=== PATIENT | male | born 1975 | race Caucasian/White ===

== ENCOUNTER 2016-11-26 02:22 | Emergency (ER) | payer OTHER ==
--- NOTE | 2016-11-26 03:32 | ERNOTE ---
Medical Problem HPI - General Chief Complaint: General Assessment Time Seen by Provider: 11/26/16 03:27 Source: patient Exam Limitations: no limitations - Immun/Allergies/Home Medications Immunizations: IMMUNIZATION HX Immunizations Up to Date Yes History of Influenza Vaccine No Hx Pneumococcal Vaccination No Allergies/Adverse Reactions: Allergies No Known Allergies Allergy (Verified 04/22/15 15:22) Home Medications: HOME MEDICATIONS NK [No Home Medication] 11/26/16 [Last Taken Unknown] - History of Present History Narrative: Pt has had some diarrhea for about a week. He believes it is related to where he is staying and that it might be black mold. Timing: intermittent Severity: mild Review of Systems - Review of Systems Constitutional: Present: malaise. Absent: recent illness, fever, chills EYE: Present: no symptoms reported ENT: Present: no symptoms reported Respiratory: Present: cough Cardiology: Absent: chest pain Gastrointestinal/Abdominal: Present: nausea, diarrhea. Absent: vomiting Genitourinary: Present: no symptoms reported Musculoskeletal: Present: no symptoms reported Skin: Present: no symptoms reported Neurological: Present: no symptoms reported Endocrine: Present: no symptoms reported Hematologic/Lymphatic: Present: no symptoms reported Psych: Present: no symptoms reported - Patient's Past Medical History Patient History - Medical: ADHD Patient History - Cardiac/Respiratory: No pertinent hx Patient History - Cancer: No Hx of Cancer Patient History - Surgical Procedures: T & A, Other, Orthopedic Patient History - Other: None - Social History Living Situations: alone Abuse History: No History of abuse Psych History: No pertinent hx Smoking Status: Current every day smoker Have you smoked in the past 12 months: Yes Do you dip or chew tobacco: No Alcohol Use: none Drug Use: none - Immunizations Immunizations Up to Date: Yes Hx Pneumococcal Vaccination: No History of Influenza Vaccine: No Physical Exam - Physical Exam General Appearance: Present: wd/wn, alert, no apparent distress Head Exam: Present: normal inspection, no evidence of injury Eye Exam: Normal inspection: bilateral Ears, Nose, Throat: Present: normal ENT inspection, normal pharynx Neck: Present: normal inspection, nontender Respiratory: Present: no respiratory distress, normal breath sounds, lungs clear Gastrointestinal/Abdominal: Present: tenderness - diffusely Extremity Exam: Present: normal inspection, no edema Neurological Exam: Present: alert, oriented, normal mood/affect Skin Exam: Present: normal color, warm/dry Lymphatic Exam: Present: no adenopathy ED Progress - Results and Orders Patient's Lab Results:: I have reviewed the patient's lab results. Results and Orders: Laboratory Tests 11/26/16 11/26/16 03:40 03:40 WBC 8.2 Hgb 16.4 Hct 48.7 Plt Count 292 Sodium 142 Potassium 3.7 Chloride 106 Carbon Dioxide 24.1 BUN 16 Creatinine 1.33 Random Glucose 99 Calcium 9.3 Total Bilirubin 0.3 AST 12 ALT 18 L Alkaline Phosphatase 127 Total Protein 8.3 H Albumin 4.2 Amylase 73 Lipase 193 - Vital Signs Patient's Vital Signs:: I have reviewed the patient's vital signs. Vital Signs: Vital Signs 11/26/16 02:27 Temperature 36.7 C Pulse Rate 114 H Respiratory 16 Rate Blood Pressure 158/92 O2 Sat by Pulse 98 Oximetry - X-Ray X-Ray #1 X-Ray: abdomen Interpretation: Interp. by me X-ray Comments: Non specific gas patern - Progress/Reassessment Chief Complaint: General Assessment Departure Clinical Impression: Gastroenteritis - Departure Disposition: Home self-care Condition: Good Instructions: Diarrhea, Adult, [id number] Additional Instructions: clear liquids if you are naseated. You may take imodium if the diarrhea is getting severe. If you think were you live is bothering you have your landlord clean it up or move out.
[2016-11-26 03:43] LABS: Hematocrit 48.7 % (42.0-52.0); Hemoglobin 16.4 gm/dL (13.5-18.0); Mean Corpuscular Hgb Conc 33.7 g/dl (32-36); Mean Platelet Volume 9.6 fl (6.0-9.5); Neutrophil # 5.1 K/mm3 (1.3-6.0); Neutrophil % 61.9 % (42-75.0); Platelet Count 292 K/mm3 (150-450); Red Blood Count 5.47 M/mm3 (4.7-6.0); Red Cell Distribution Width 13.2 % (11.5-14.0); White Blood Count 8.2 K/mm3 (4.0-10.5)
[2016-11-26 04:00] LABS: Albumin * 4.2 gm/dl (3.4-5.0); Anion Gap 15.6 mmol/L (6.8-13.8); Bilirubin, Total 0.3 mg/dL (0.0-1.1); Ca. Corrected For Albumin 8.8 mg/dL (8.4-10.2); Calcium * 9.3 mg/dL (7.9-10.9); Carbon Dioxide 24.1 mmol/L (24-32.6); Potassium 3.7 mmol/L (3.4-4.6); Total Protein 8.3 gm/dL (6.2-8.2)
[2016-11-26 04:33] VITALS: BP 141/96
== END 2016-11-26 04:32 | disposition home or self-care (01) ==
LOC: ER 02:22
DX: K52.9 Noninfective gastroenteritis and colitis, unspecified (principal); F17.200 Nicotine dependence, unspecified, uncomplicated